=== PATIENT | male | born 1955 | race Caucasian/White ===

== ENCOUNTER 2020-05-25 06:58 | Emergency (ER) | payer BC, SELFPAY ==
[~2020-05-25] VITALS: Ht 172.7 cm; Wt 106.0 kg
[2020-05-25] MEDS ORDERED: SODIUM CHLORIDE FLUSH 10ML SYR IVF ONE (08:00)
[2020-05-25 08:13] LABS: BASOPHILS % (AUTO) 1 % (0-1); EOSINOPHILS % (AUTO) 3 % (1-7); LYMPHOCYTES % (AUTO) 24 % (22-44); MEAN CORPUSCULAR HEMOGLOBIN 32.5 pg (27.5-34.5); MEAN CORPUSCULAR HGB CONC 34.6 g/dL (33.2-36.2); MEAN PLATELET VOLUME 7.3 fL (7.4-10.4); MONOCYTES % (AUTO) 10 % (2-9); NEUTROPHILS % (AUTO) 62 % (42-75); PLATELET COUNT 305 x10^3/uL (130-400); RED BLOOD COUNT 5.16 x10^6/uL (4.38-5.82)
[2020-05-25 08:14] LABS: MD NO
[2020-05-25 08:26] LABS: ALANINE AMINOTRANSFERASE 39 U/L (12-78); ANION GAP 7 mmol/L (5-15); CHLORIDE 108 mmol/L (98-107)
[2020-05-25 08:29] LABS: ALKALINE PHOSPHATASE 76 U/L (45-117); BILIRUBIN,TOTAL 0.7 mg/dL (0.2-1.0); CREATININE 1.24 mg/dL (0.7-1.3); TOTAL PROTEIN 7.9 g/dL (6.4-8.2)
[2020-05-25 09:20] LABS: MICROSCOPIC AUTO
--- NOTE | 2020-05-25 09:20 | NUR ---
PT CAME IN CO OF RLQ RUQ ABD THAT RADIATES TO HIS RIGHT FLANK THAT STARTED THIS MORNING. PT DENIES PAINFUL URINATION OR URIANRY FREQUENCY. PT STATES HE HAS HISTORY OF KIDNEY STONES. PT IS ACCOMPANIED BY . CONNECTED TO MONITORING EQUIPMENT.
[2020-05-25] MEDS ORDERED: HYDROcodone/APAP 5/325 TABLET ONE (09:26)
[2020-05-25] MEDS ORDERED: HYDROcodone/APAP 5/325 TABLET PO ONE (09:30)
[2020-05-25 09:40] VITALS: BP 155/87
--- NOTE | 2020-05-25 09:41 | NUR ---
PT MEDICATED PER [facility]
--- NOTE | 2020-05-25 10:38 | NUR ---
Patient given discharge instructions and they have confirmed that they understand the instructions. Patient ambulatory with steady gait.
== END 2020-05-25 10:39 | disposition home or self-care (01) ==
LOC: ED 10:09
DX: N20.1 Calculus of ureter (principal); R11.0 Nausea
CPT/HCPCS: 36415; 74176; 80053; 81001; 85025; 87086; 99284